=== PATIENT | female | born 1975 | race Caucasian/White ===

== ENCOUNTER 2019-12-18 10:08 | Inpatient (IN) ==
[2019-12-18] MEDS ORDERED: NITROGLYCERIN SL 0.4 MG TABLET SL PRN (10:37)
[2019-12-18 10:48] LABS: Basophils # 0.1 10*3/uL (0.0-0.2); Basophils % 0.7 % (0.0-0.8); Eosinophils # 0.2 10*3/uL (0.0-0.87); Eosinophils % 2.1 % (0.00-10.9); Hematocrit 36.7 VOL% (35.7-47.0); Hemoglobin 10.4 GM/DL (12.0-16.0); Immature Granulocytes % 0.8 %; Immature Granulocytes Absolute 0.06 #; Lymphocytes # 1.5 10*3/uL (1.4-4.0); Lymphocytes % 21.3 % (21.3-54.2); Mean Corpuscular HGB Conc 28.3 GM/DL (32-36); Mean Corpuscular Volume 69.9 FL (87-102); Mean Platelet Volume 8.7 FL (9.6-12.0); Monocytes % 8.2 % (1.7-12.7); Neutrophils % 66.9 % (38.7-73.9); Platelet Count 323 T/CUMM (130-400); Red Blood Count 5.25 MC/CUMM (3.8-5.5); Red Cell Distribution Width 18.8 % (9.3-17.3); White Blood Count 7.2 T/CUMM (4-12)
[2019-12-18 10:50] LABS: Platelet Estimate Normal
[2019-12-18 10:51] LABS: Anisocytosis 2+; Ovalocytes Few; Polychromasia Slight
[2019-12-18 10:56] LABS: Bilirubin,Total 0.8 MG/DL (0.2-1.0); Calcium 8.9 MG/DL (8.5-10.1); Osmolality,Calculated 280.4 MOS/KG (273-304); Total Protein 7.8 G/DL (6.4-8.3)
[2019-12-18] MEDS ORDERED: ONDANSETRON 4 MG/2 ML VIAL IV PRN (11:58)
[2019-12-18] MEDS ORDERED: GLUCAGON 1 MG VIAL IM PRN (11:58)
[2019-12-18] MEDS ORDERED: DEXTROSE 50% 25 GM/50 ML VIAL IV PRN (11:58)
[2019-12-18] MEDS: ENOXAPARIN 120 MG/0.8 ML SYRINGE SUBCUT SCH (13:00)
[2019-12-18 13:21] LABS: Bilirubin,Urine Negative (Negative); Blood, Urine Large mg/dL (Negative); Glucose,Urine (UA) >=500 mg/dL (Negative); Ketones,Urine Negative (Negative); Nitrite,Urine Negative (Negative); Protein,Urine 30 MG/DL; RBC,Urine 1217 /HPF (0-4); Squamous Epithelial Cell,Urine Occasional /HPF (0-10); Urine Appearance CLEAR (Clear); Urine Color Yellow (Yellow); Urine Specific Gravity 1.044 (1.001-1.035); Urine Urobilinogen < 2.0 EU/DL (0.2-1.0)
[2019-12-18] MEDS: DEXTROSE 5% NACL 0.9% 1,000 ML IV SCH (13:54)
[2019-12-18] MEDS ORDERED: hydrALAZINE 20 MG/1 ML VIAL IV PRN (15:25)
[2019-12-18] MEDS ORDERED: LORazepam 2 MG/1 ML VIAL IV PRN (15:25)
[2019-12-18] MEDS ORDERED: LABETALOL 20 MG/4 ML SYRINGE IV PRN (15:25)
[2019-12-18 16:30] LABS: Ferritin 6.9 ng/ml (8-252)
[2019-12-18] MEDS: INSULIN LISPRO 100 UNIT/ML SUBCUT SCH ×2 (18:25→22:17)
[2019-12-18 20:10] LABS: Bilirubin,Urine Negative (Negative); Blood, Urine Negative (Negative); Glucose,Urine (UA) >=500 mg/dL (Negative); Ketones,Urine 5 mg/dL (Negative); Mucus,Urine Occasional /LPF (Occasional); Nitrite,Urine Negative (Negative); Protein,Urine Negative; RBC,Urine 3 /HPF (0-4); Squamous Epithelial Cell,Urine Occasional /HPF (0-10); Urine Appearance CLEAR (Clear); Urine Color Yellow (Yellow); Urine Specific Gravity 1.051 (1.001-1.035); Urine Urobilinogen < 2.0 EU/DL (0.2-1.0); WBC,Urine <1 /HPF (0-6)
[2019-12-18] MEDS ORDERED: ALTEPLASE 2 MG VIAL ONE (20:21)
[2019-12-18] MEDS ORDERED: LIDOCAINE 1% 20 ML VIAL ONE (20:45)
[2019-12-18] MEDS ORDERED: MIDAZOLAM 2 MG/2 ML VIAL ONE (20:46)
[2019-12-18] MEDS ORDERED: fentaNYL 100 MCG/2 ML VIAL ONE (20:46)
[2019-12-18] MEDS ORDERED: SODIUM CHLORIDE 0.9% 1,000 ML IV SCH ×2 (21:30)
[2019-12-18] MEDS ORDERED: ALTEPLASE 6 MG in SODIUM CHLORIDE 0.9% 120 ML IV SCH (21:30)
[2019-12-18] MEDS ORDERED: HEPARIN DRIP 25,000 UNITS/500 ML PREMIX IV SCH ×2 (22:00→22:30)
[2019-12-18] MEDS: FAMOTIDINE 20 MG TABLET PO SCH (22:16)
[2019-12-18] MEDS: LATANOPROST 0.005% OPH SOLN 2.5 ML BOTTLE BOTH EYES SCH (22:17)
[2019-12-18 22:55] LABS: INR 1.1; PT Patient Result 11.5 SECS (9.8-11.9)
[2019-12-19] MEDS: DEXTROSE 5% NACL 0.9% 1,000 ML IV SCH ×2 (01:09→10:05)
[2019-12-19] MEDS: ENOXAPARIN 120 MG/0.8 ML SYRINGE SUBCUT SCH (02:28)
[2019-12-19 04:40] LABS: Basophils % 0.5 % (0.0-0.8); Eosinophils # 0.1 10*3/uL (0.0-0.87); Eosinophils % 1.3 % (0.00-10.9); Hematocrit 29.9 VOL% (35.7-47.0); Hemoglobin 8.7 GM/DL (12.0-16.0); Immature Granulocytes % 0.6 %; Immature Granulocytes Absolute 0.04 #; Lymphocytes # 1.5 10*3/uL (1.4-4.0); Lymphocytes % 24.5 % (21.3-54.2); Mean Corpuscular HGB Conc 29.1 GM/DL (32-36); Mean Platelet Volume 9.1 FL (9.6-12.0); Monocytes % 8.1 % (1.7-12.7); Platelet Count 268 T/CUMM (130-400); Red Blood Count 4.27 MC/CUMM (3.8-5.5); Red Cell Distribution Width 18.8 % (9.3-17.3); White Blood Count 6.2 T/CUMM (4-12)
[2019-12-19 04:55] LABS: PT Patient Result 11.2 SECS (9.8-11.9)
[2019-12-19 05:21] LABS: Albumin 3.2 G/DL (3.4-5.0); Bilirubin,Total 1.3 MG/DL (0.2-1.0); Calcium 8.2 MG/DL (8.5-10.1); Osmolality,Calculated 280.3 MOS/KG (273-304); Total Protein 6.5 G/DL (6.4-8.3)
[2019-12-19] MEDS: CYCLOBENZAPRINE 10 MG TABLET PO PRN ×2 (06:58→20:18)
[2019-12-19] MEDS: INSULIN LISPRO 100 UNIT/ML SUBCUT SCH ×4 (08:54→20:19)
[2019-12-19] MEDS: LORATADINE 10 MG TABLET PO SCH (08:57)
[2019-12-19] MEDS: LOSARTAN 50 MG TABLET PO SCH (08:58)
[2019-12-19] MEDS: FAMOTIDINE 20 MG TABLET PO SCH ×2 (08:59→20:18)
[2019-12-19] MEDS: ATORVASTATIN 20 MG TABLET PO SCH (09:00)
[2019-12-19] MEDS ORDERED: ENOXAPARIN 120 MG/0.8 ML SYRINGE SUBCUT SCH (09:00)
[2019-12-19] MEDS ORDERED: NON-FORMULARY MEDICATION (Dapagliflozin [Farxiga] 5 MG) PO SCH (09:00)
[2019-12-19] MEDS ORDERED: BENZONATATE 100 MG CAPSULE PO SCH (09:00)
[2019-12-19] MEDS ORDERED: ATROPINE 1 MG/10 ML SYRINGE ONE (09:30)
[2019-12-19] MEDS ORDERED: ATROPINE 1 MG/10 ML SYRINGE IV ONE (09:30)
[2019-12-19] MEDS: APIXABAN 5 MG TABLET PO SCH ×2 (10:13→20:24)
[2019-12-19] MEDS ORDERED: GLUCAGON 1 MG VIAL IM PRN (10:15)
[2019-12-19] MEDS ORDERED: DEXTROSE 50% 25 GM/50 ML VIAL IV PRN (10:15)
[2019-12-19] MEDS ORDERED: BENZONATATE 100 MG CAPSULE PO PRN (11:35)
[2019-12-19] MEDS: LATANOPROST 0.005% OPH SOLN 2.5 ML BOTTLE BOTH EYES SCH (20:25)
[2019-12-20 05:38] LABS: Calcium 8.1 MG/DL (8.5-10.1); Osmolality,Calculated 278.4 MOS/KG (273-304)
[2019-12-20 06:25] LABS: Basophils % 0.5 % (0.0-0.8); Eosinophils # 0.3 10*3/uL (0.0-0.87); Eosinophils % 4.8 % (0.00-10.9); Hematocrit 29.9 VOL% (35.7-47.0); Hemoglobin 8.6 GM/DL (12.0-16.0); Immature Granulocytes % 0.7 %; Immature Granulocytes Absolute 0.04 #; Lymphocytes # 1.7 10*3/uL (1.4-4.0); Lymphocytes % 29.9 % (21.3-54.2); Mean Corpuscular HGB Conc 28.8 GM/DL (32-36); Mean Corpuscular Volume 71.5 FL (87-102); Mean Platelet Volume 9.3 FL (9.6-12.0); Monocytes % 8.3 % (1.7-12.7); Neutrophils % 55.8 % (38.7-73.9); Platelet Count 250 T/CUMM (130-400); Red Blood Count 4.18 MC/CUMM (3.8-5.5); Red Cell Distribution Width 18.9 % (9.3-17.3); White Blood Count 5.8 T/CUMM (4-12)
[2019-12-20 07:11] LABS: Elliptocytes Few; Hypochromasia 4+; Ovalocytes Few; Polychromasia Slight; Schistocytes Few
[2019-12-20 07:12] LABS: Anisocytosis 2+; Microcytosis 2+; Poikilocytosis 1+
[2019-12-20] MEDS: INSULIN LISPRO 100 UNIT/ML SUBCUT SCH ×4 (08:44→20:02)
[2019-12-20] MEDS ORDERED: POLYETHYLENE GLYCOL POWDER 17 GM PACK PO PRN (09:41)
[2019-12-20] MEDS: FAMOTIDINE 20 MG TABLET PO SCH ×2 (10:00→20:00)
[2019-12-20] MEDS: APIXABAN 5 MG TABLET PO SCH ×2 (10:00→20:01)
[2019-12-20] MEDS: LORATADINE 10 MG TABLET PO SCH (10:01)
[2019-12-20] MEDS: ATORVASTATIN 20 MG TABLET PO SCH (10:01)
[2019-12-20] MEDS: LOSARTAN 50 MG TABLET PO SCH (10:01)
[2019-12-20] MEDS: NEOMYCIN/POLYMYXIN/BACITRACIN OINT 0.9 GM PACK TOP SCH ×2 (17:26→20:01)
[2019-12-20] MEDS: LATANOPROST 0.005% OPH SOLN 2.5 ML BOTTLE BOTH EYES SCH (20:02)
[2019-12-21 05:41] LABS: Basophils % 0.7 % (0.0-0.8); Eosinophils # 0.3 10*3/uL (0.0-0.87); Eosinophils % 5.7 % (0.00-10.9); Immature Granulocytes % 0.7 %; Immature Granulocytes Absolute 0.04 #; Lymphocytes % 35.8 % (21.3-54.2); Mean Corpuscular HGB Conc 28.3 GM/DL (32-36); Mean Corpuscular Volume 70.5 FL (87-102); Mean Platelet Volume 9.1 FL (9.6-12.0); Monocytes % 9.8 % (1.7-12.7); Neutrophils % 47.3 % (38.7-73.9); Platelet Count 258 T/CUMM (130-400); Red Blood Count 4.31 MC/CUMM (3.8-5.5); Red Cell Distribution Width 18.6 % (9.3-17.3); White Blood Count 5.6 T/CUMM (4-12)
[2019-12-21 06:20] LABS: Calcium 8.5 MG/DL (8.5-10.1); Osmolality,Calculated 278.4 MOS/KG (273-304)
[2019-12-21 06:33] LABS: Hemoglobin 8.6 GM/DL (12.0-16.0)
[2019-12-21 06:37] LABS: Hypochromasia 2+; Microcytosis 2+; Ovalocytes Few
[2019-12-21 06:38] LABS: Platelet Estimate Normal
[2019-12-21] MEDS: INSULIN LISPRO 100 UNIT/ML SUBCUT SCH (09:07)
[2019-12-21] MEDS: APIXABAN 5 MG TABLET PO SCH (09:08)
[2019-12-21] MEDS: LORATADINE 10 MG TABLET PO SCH (09:08)
[2019-12-21] MEDS: ATORVASTATIN 20 MG TABLET PO SCH (09:08)
[2019-12-21] MEDS: LOSARTAN 50 MG TABLET PO SCH (09:08)
[2019-12-21] MEDS: FAMOTIDINE 20 MG TABLET PO SCH (09:09)
[2019-12-21] MEDS: NEOMYCIN/POLYMYXIN/BACITRACIN OINT 0.9 GM PACK TOP SCH (09:09)
[2019-12-21] MEDS ORDERED: HYDROCORTISONE 1% CREAM 28 GM TUBE TOP SCH (11:00)
[2019-12-21 11:27] VITALS: BP 154/92
[2019-12-22 12:49] LABS: DRVVT Screen Ratio 0.85 ratio (<1.20); INR 1.1 (0.9-1.1)
[2019-12-22 20:41] LABS: Protein S Activity Plasma 87 % (50 - 160)
[2019-12-23 13:00] LABS: Protein C Activity Plasma 104 % (70 - 150)
[2019-12-25 08:41] LABS: PTNT Reviewed By SEE COMMENTS
[2019-12-27] MEDS ORDERED: APIXABAN 5 MG TABLET PO SCH (09:00)
== END 2019-12-21 12:50 | disposition home or self-care (01) | DRG 176 ==
LOC: N.ED 10:08 → SUATTDRO 11:58 → N.EDINP 11:58 → N.ICU 15:05 → N.TELES 12-19 18:02
PROVIDERS: ADMIT Family Medicine; ATTEND Internal Medicine

== ENCOUNTER 2020-01-08 13:01 | Observation (INO) ==
[2020-01-08 13:49] LABS: Basophils # 0.1 10*3/uL (0.0-0.2); Basophils % 0.9 % (0.0-0.8); Eosinophils # 0.2 10*3/uL (0.0-0.87); Eosinophils % 2.2 % (0.00-10.9); Hematocrit 36.2 VOL% (35.7-47.0); Hemoglobin 10.2 GM/DL (12.0-16.0); Immature Granulocytes % 0.8 %; Immature Granulocytes Absolute 0.08 #; Lymphocytes # 2.5 10*3/uL (1.4-4.0); Lymphocytes % 25.7 % (21.3-54.2); Mean Corpuscular HGB Conc 28.2 GM/DL (32-36); Mean Corpuscular Volume 71.1 FL (87-102); Mean Platelet Volume 8.8 FL (9.6-12.0); Monocytes % 6.7 % (1.7-12.7); Neutrophils % 63.7 % (38.7-73.9); Platelet Count 373 T/CUMM (130-400); Red Blood Count 5.09 MC/CUMM (3.8-5.5); Red Cell Distribution Width 18.2 % (9.3-17.3); White Blood Count 9.7 T/CUMM (4-12)
[2020-01-08 14:13] LABS: Calcium 9.7 MG/DL (8.5-10.1); Osmolality,Calculated 276.8 MOS/KG (273-304); Thyroid Stimulating Hormone 0.888 uIU/ml (0.358-3.74)
[2020-01-08] MEDS ORDERED: DEXTROSE 50% 25 GM/50 ML VIAL IV PRN (16:08)
[2020-01-08] MEDS ORDERED: hydrALAZINE 20 MG/1 ML VIAL IV PRN (16:08)
[2020-01-08] MEDS ORDERED: PROMETHAZINE 25 MG/1 ML VIAL IM PRN (16:08)
[2020-01-08] MEDS ORDERED: ZALEPLON 5 MG CAPSULE PO PRN (16:08)
[2020-01-08] MEDS ORDERED: traZODone 50 MG TABLET PO PRN (16:08)
[2020-01-08] MEDS ORDERED: GLUCAGON 1 MG VIAL IM PRN (16:08)
[2020-01-08] MEDS ORDERED: ACETAMINOPHEN 325 MG TABLET PO PRN (16:08)
[2020-01-08] MEDS ORDERED: ONDANSETRON 4 MG/2 ML VIAL IV PRN (16:08)
[2020-01-08] MEDS ORDERED: clonazePAM 0.5 MG TABLET PO PRN (16:13)
[2020-01-08] MEDS ORDERED: MAGNESIUM SULF RIDER 2 GM in PREMIX 1 EACH IV ONE (18:00)
[2020-01-08] MEDS: INSULIN REGULAR 100 UNIT/ML SUBCUT SCH ×2 (18:34→21:38)
[2020-01-08] MEDS: SODIUM CHLORIDE 0.9% 1,000 ML IV SCH (18:39)
[2020-01-08] MEDS ORDERED: LATANOPROST 0.005% OPH SOLN 2.5 ML BOTTLE BOTH EYES SCH (21:00)
[2020-01-08] MEDS: FAMOTIDINE 20 MG TABLET PO SCH (21:38)
[2020-01-08] MEDS: APIXABAN 5 MG TABLET PO SCH (21:38)
[2020-01-08] MEDS: HYDROCORTISONE 1% CREAM 28 GM TUBE TOP SCH (21:40)
[2020-01-09 01:30] LABS: Basophils # 0.1 10*3/uL (0.0-0.2); Basophils % 0.6 % (0.0-0.8); Eosinophils # 0.2 10*3/uL (0.0-0.87); Eosinophils % 2.1 % (0.00-10.9); Hematocrit 31.2 VOL% (35.7-47.0); Hemoglobin 9.1 GM/DL (12.0-16.0); Immature Granulocytes % 0.8 %; Immature Granulocytes Absolute 0.07 #; Lymphocytes # 2.6 10*3/uL (1.4-4.0); Lymphocytes % 28.6 % (21.3-54.2); Mean Corpuscular HGB Conc 29.2 GM/DL (32-36); Mean Corpuscular Volume 68.7 FL (87-102); Mean Platelet Volume 8.8 FL (9.6-12.0); Monocytes % 10.1 % (1.7-12.7); Neutrophils % 57.8 % (38.7-73.9); Platelet Count 318 T/CUMM (130-400); Red Blood Count 4.54 MC/CUMM (3.8-5.5); Red Cell Distribution Width 18.2 % (9.3-17.3)
[2020-01-09 01:47] LABS: Calcium 8.4 MG/DL (8.5-10.1); Osmolality,Calculated 277.7 MOS/KG (273-304)
[2020-01-09] MEDS: SODIUM CHLORIDE 0.9% 1,000 ML IV SCH (02:46)
[2020-01-09] MEDS ORDERED: CYANOCOBALAMIN 1000 MCG/1 ML VIAL IM ONE (07:27)
[2020-01-09] MEDS ORDERED: ERGOCALCIFEROL 50,000 UNIT CAPSULE PO SCH (07:30)
[2020-01-09] MEDS ORDERED: IRON SUCROSE 300 MG in SODIUM CHLORIDE 0.9% 100 ML IV ONE (08:00)
[2020-01-09] MEDS: INSULIN REGULAR 100 UNIT/ML SUBCUT SCH ×2 (08:16→12:13)
[2020-01-09] MEDS ORDERED: NON-FORMULARY MEDICATION (Dapagliflozin [Farxiga] 5 MG) PO SCH (09:00)
[2020-01-09] MEDS ORDERED: LORATADINE 10 MG TABLET PO SCH (09:00)
[2020-01-09] MEDS ORDERED: ATORVASTATIN 20 MG TABLET PO SCH (09:00)
[2020-01-09] MEDS ORDERED: LOSARTAN 50 MG TABLET PO SCH (09:00)
[2020-01-09] MEDS: FAMOTIDINE 20 MG TABLET PO SCH (09:43)
[2020-01-09] MEDS: APIXABAN 5 MG TABLET PO SCH (09:43)
[2020-01-09] MEDS: HYDROCORTISONE 1% CREAM 28 GM TUBE TOP SCH (09:49)
[2020-01-09 12:13] VITALS: BP 128/63
[2020-01-09] MEDS: METOPROLOL SUCCINATE XL 25 MG TABLET PO SCH ×2 (13:34→13:37)
[2020-01-09] MEDS ORDERED: PNEUMOCOCCAL VACCINE (13 VALENT) 0.5 ML SYRINGE IM ONE (13:46)
== END 2020-01-09 15:10 | disposition home or self-care (01) ==
LOC: N.ED 13:01 → N.EDINP 13:01 → N.TELEN 17:51
PROVIDERS: ADMIT Internal Medicine; ATTEND Internal Medicine